=== PATIENT | male | born 1955 | race Caucasian/White ===

== ENCOUNTER 2018-12-19 05:46 | Day surgery (SDC) | payer OTHER ==
--- NOTE | 2018-12-18 18:55 | HP ---
HISTORY AND PHYSICAL: DATE OF ADMISSION: 12/20/18 CHIEF COMPLAINT: Right leg pain. HISTORY OF PRESENT ILLNESS: This 63-year-old gentleman reported developing pain in his back 10 days prior to admission. He had awoken with significant back pain, followed very shortly by a bout of severe radiating pain into his right leg. He initially took an oral course of steroids, with little relief. He has had unremitting right leg pain and was referred for an MRI study, which showed a huge extruded disk fragment at L3-4 on the right side. He has weakness in his right leg and is being admitted at this time for elective lumbar microdiskectomy. PAST SURGICAL HISTORY: Previous surgeries include: 1. Bilateral hernia repair. 2. Robotic prostatectomy. 3. Tonsillectomy. MEDICATIONS: At the time of admission include: 1. Wellbutrin 300 mg p.o. daily. 2. Crestor 10 mg p.o. daily. ALLERGIES: He has no medication allergies. FAMILY HISTORY: Family history was taken and noncontributory to this illness. SOCIAL HISTORY: Reveals that he occasionally drinks, but does not smoke. REVIEW OF SYSTEMS: Although significant in the musculoskeletal review for back pain as well as the neurological review for focal weakness, the remainder of his review of systems was noncontributory. PHYSICAL EXAMINATION VITAL SIGNS: Exam reveals blood pressure to be 140/72 with a pulse of 72 and respirations of 14. HEENT: Exam was normal. NECK: Supple. LUNGS: Clear to auscultation. CARDIOVASCULAR: Exam revealed a regular rate and rhythm. ABDOMEN: Soft with normal bowel sounds and no tenderness. EXTREMITIES: Revealed an active range of passive motion. BACK EXAM: Revealed that he could not straighten up his lumbar spine without developing right radicular pain. EXTREMITIES: His knee reflex was 1+ on the right and 2+ on the left, and his hip flexors were noted to be 4/5 on the right and normal on the left. Sensory examination was normal. NEUROLOGICAL: Revealed cranial nerves II through XII to be intact. PLAN: He is being admitted at this time for an L3-4 microdiskectomy on the right side. [id number]/[facility] #: [id number] [facility]
[~2018-12-19 05:46] MED LIST: Buffered Lidocaine 1% SYRIN* 1 ML/SYRINGE INTRADERM ONE
[2018-12-19] MEDS ORDERED: Dexamethasone IV* 4 MG/ML 1 ML (4 MG) IV SLOW PU ONE (06:00)
[2018-12-19] MEDS ORDERED: Lactated Ringers 1000 ML Bag* 1,000 ML IV SCH (06:00)
[2018-12-19] MEDS ORDERED: Famotidine IV* 10 MG/ML 2 ML (20 mg) IV ONE (06:00)
[2018-12-19] MEDS ORDERED: Famotidine IV* 10 MG/ML 2 ML (20 mg) ONE (06:20)
[2018-12-19] MEDS ORDERED: Buffered Lidocaine 1% SYRIN* 1 ML/SYRINGE INTRADERM ONE (06:20)
[2018-12-19] MEDS ORDERED: Dexamethasone IV* 4 MG/ML 1 ML (4 MG) ONE (06:20)
[2018-12-19] MEDS ORDERED: Thrombin 5,000 UNITS* 1 APPLIC KIT - topical use - TOPICAL ONE (06:58)
[2018-12-19] MEDS ORDERED: Bacitracin INJECTION* 50,000 UNITS ONE (06:58)
[2018-12-19] MEDS ORDERED: Lidocaine 1% w EPI 1:100,000* 30 ML VIAL ONE (06:58)
[2018-12-19] MEDS ORDERED: fentaNYL* 50 MCG/ML 2 ML VIAL (100 MCG VIAL) ONE (07:05)
[2018-12-19] MEDS ORDERED: Midazolam* 1 MG/ML 2 ML VIAL (2 MG) ONE (07:05)
[2018-12-19] MEDS ORDERED: Propofol* 10 MG/ML 20 ML BTL ONE (07:07)
[2018-12-19] MEDS ORDERED: Lidocaine 2% PF * 5 ML VIAL ONE (07:07)
[2018-12-19] MEDS ORDERED: Rocuronium* 10 MG/ML VIAL ONE (07:09)
[2018-12-19] MEDS ORDERED: Sugammadex * 200 MG/2 ML VIAL IV PUSH ONE (07:12)
[2018-12-19] MEDS ORDERED: ceFAZolin 2 GM in NS PREMIX(*) 2 GM/100 ML BAG IVPB ONE (07:33)
[2018-12-19] MEDS ORDERED: Neostigmine Methylsulfate* 3 MG/3 ML SYRINGE ONE (08:14)
[2018-12-19] MEDS ORDERED: Glycopyrrolate IV* 0.2 MG/ML 1 ML VIAL ONE (08:15)
[2018-12-19] MEDS ORDERED: Ondansetron INJ* 2 MG/ML VIAL ONE (08:15)
[2018-12-19] MEDS ORDERED: Ketorolac INJ* 30 MG/ML 1 ML VIAL ONE (08:15)
[2018-12-19] MEDS ORDERED: fentaNYL* 50 MCG/ML 2 ML VIAL (100 MCG VIAL) IV PRN (09:35)
[2018-12-19] MEDS ORDERED: HYDROmorphone INJ1* 1 MG/ML SYRINGE IV PRN (09:35)
[2018-12-19] MEDS ORDERED: Naloxone* 0.4 MG/ML 1 ML VIAL IV PRN (09:35)
[2018-12-19] MEDS ORDERED: DiMENhydriNATE IV* 50 MG/ML VIAL IV PUSH PRN (09:35)
[2018-12-19 10:09] VITALS: BP 153/87
--- NOTE | 2018-12-29 17:52 | OP ---
DATE OF OPERATION: 12/19/18 - [facility] DATE OF : 53 SURGEON: Real Ortiz MD ANESTHESIA: General. PRE-OP DIAGNOSIS: Herniated nucleus pulposus, L3-4 on the right. POST-OP DIAGNOSIS: Herniated nucleus pulposus, L3-4 on the right. OPERATIVE PROCEDURE: Lumbar microdiskectomy at L3-4 on the right with microdissection. DESCRIPTION OF PROCEDURE: After satisfactory general anesthesia was obtained, the patient was placed on the operating table in the prone position with the chest supported on the Homero frame and the back slightly flexed. The lumbar region was then clipped, prepped and draped in a sterile manner for a lumbar laminectomy and a skin incision was outlined over L3 and L4. This incision was infiltrated with 1% Xylocaine with epinephrine, after which it was turned in sharply to the level of the lumbar fascia. The fascia was divided along the spinous processes of L3 and L4 and the paraspinal musculature stripped away from these posterior elements utilizing the periosteal elevator and monopolar cautery. An intraoperative x-ray was obtained verifying proper interspace localization, after which a partial hemilaminectomy was carried out at L3-4 by thinning out the inferior aspect of the L3 lamina and medial aspect of the facet complex with a combination of the Midas Kt drill and Kerrison rongeurs. Kerrisons were then used to complete the partial hemilaminectomy. This was carried somewhat more superiorly than usual secondary to the fact that preoperative imaging had suggested the superior migration of a large extruded disk fragment. After removing the ligamentum flavum, the operating microscope was brought into the field and the remainder of the procedure was done under microscopic visualization. Utilizing microdissection, epidural venous structures were coagulated and divided. Projecting up over the L3 vertebral body and projecting adjacent to the L3 nerve root were several large fragments of subcapsular extruded disk material. These were dissected free and removed with the nerve hooks and pituitaries. At the conclusion of the decompression, the L3 nerve root was noted to be free in its course. After assuring adequate hemostasis, the wound was thoroughly irrigated, after which a piece of Gelfoam was placed over the laminectomy defect. The fascia was then reapproximated with 0 Vicryl suture. The subcutaneous tissue was closed with 3-0 Vicryl suture and Steri-Strips applied to the skin. The estimated blood loss was less than 50 cc and the final sponge , ulises, and needle counts were correct. The patient was taken to the recovery room, extubated, and in stable condition. [id number]/[facility] #: [id number] MTDD
== END 2018-12-19 10:32 | disposition home or self-care (01) ==
LOC: OR 05:46
PROVIDERS: ATTEND Neurological Surgery
DX: M51.26 Other intervertebral disc displacement, lumbar region (principal); M79.604 Pain in right leg; Z85.46 Personal history of malignant neoplasm of prostate
CPT/HCPCS: 72100; A9270-GY; J0690; J1100; J1885; J2250; J2405; J2704; J2710; J3010